=== PATIENT | female | born 1985 | race Two or more races ===

== ENCOUNTER 2017-06-20 01:49 | Inpatient (IN) | payer OTHER ==
[2017-06-20] VITALS (41 sets, daily range): BP systolic 88–220; BP diastolic 43–175; PULSE 78–206; RESP 16–18; TEMP 97.7–98.7
[~2017-06-20] VITALS: Ht 170.2 cm; Wt 81.0 kg
[2017-06-20] MEDS ORDERED: MAGNESIUM SULFATE 4 GM PREMIX 100 ML IV ONE ×2 (03:00→03:30)
[2017-06-20] MEDS ORDERED: MAGNESIUM SULFATE 40 GM PREMIX 1,000 ML IV SCH (03:22)
[2017-06-20] MEDS ORDERED: oxyCODONE/ACETAMINOPHEN 5 MG/325 MG TAB PO PRN (03:30)
[2017-06-20] MEDS ORDERED: ONDANSETRON ODT 4 MG TAB PO PRN (03:30)
[2017-06-20] MEDS ORDERED: ONDANSETRON HCL 4 MG/2 ML VIAL IV PUSH PRN (03:30)
[2017-06-20] MEDS ORDERED: ENOXAPARIN SODIUM 40 MG/0.4 ML SYRINGE SQ SCH (03:30)
[2017-06-20] MEDS ORDERED: SODIUM CHLORIDE 0.9% FLUSH 10 ML FLUSH IV FLUSH PRN (03:30)
[2017-06-20] MEDS ORDERED: ACETAMINOPHEN 325 MG TAB PO PRN (03:30)
[2017-06-20] MEDS ORDERED: DOCUSATE SODIUM 100 MG CAP PO PRN (03:30)
[2017-06-20] MEDS ORDERED: CALCIUM GLUCONATE 10% 1 GM/10 ML VIAL IV PUSH PRN (03:30)
[2017-06-20] MEDS ORDERED: ZOLPIDEM TARTRATE 5 MG TAB PO PRN (03:30)
--- NOTE | 2017-06-20 03:44 | HHI.HP ---
HPI Chief Complaint Water broke Date Seen: Jun 20, 2017 Time Seen: 03:00 Travel History International Travel<30 Days: Yes Contact w/Intl Traveler<30Days: Yes Known Affected Area: No History of Present Illness HPI Patient is 32-year-old white female at 30 weeks who is vacationing here in the [facility] from [place] and is now had premature rupture the membranes grossly, no bleeding, no pain or contractions. 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 and is on subcutaneous heparin with this and with her last well Obstetric History Obstetric History 1/delivery term exactly 1 year ago Social History Alcohol Use: No Tobacco Use: No Substance Abuse: No Allergies-Medications (Allergen,Severity, Reaction): Uncoded Allergies: no known allergy (Allergy, Unknown, 06/20/17) Review of Systems General / Constitutional: No: Fever, Weight Gain, Chills, Other Eyes: No: Diploplia, Blurred Vision, Visual changes, Pain, Photophobia HENT: No: Headaches, Vertigo, Lightheadedness Cardiovascular: No: Irregular Rhythm, Chest Pain or Discomfort, Palpitations, Tachycardia, Syncope, Varicosities, Edema, Cyanosis Respiratory: No: Cough, Short of Breath, Other Gastrointestinal: No: Nausea, Vomiting, Diarrhea Genitourinary: No: Decreased Urinary Output, Oliguria Musculoskeletal: No: Limited ROM, Weakness, Cramping, Edema, Pain Skin: No Rash, No Itching, No Dryness, No Lumps, No Change in Pigmentation, No Change in Nails, No Alopecia, No Lesions Neurologic: No: Weakness, Dizziness, Syncope, Focal Abnormalities, Coordination Problem, Headache, Slurred Speech, Seizures Psychiatric: No: Depression, Suicidal Ideations, Homicidal Ideation Endocrine: No: Heat Intolerance, Cold Intolerance, Polydipsia, Polyuria, Other Physical Exam Narrative GENERAL: Well-nourished, well-developed patient. SKIN: Warm and dry. HEAD: Normocephalic and atraumatic. EYES: No scleral icterus. No injection or drainage. ENT: No nasal drainage noted. Mucous membranes pink. Airway patent. NECK: Supple, trachea midline. No JVD. CARDIOVASCULAR: Regular rate and rhythm without murmurs, gallops, or rubs. RESPIRATORY: Breath sounds equal bilaterally. No accessory muscle use. BREASTS: Bilateral exam showed no masses , no retractions, no nipple discharge. ABDOMEN/GI: Abdomen soft, non-tender, bowel sounds present, no rebound, no guarding Gravid to [-30] weeks size Fundal Height: [30-] GENITOURINARY: External Genitalia: intact and normal in appearance spec exam -- large gush of fluid cx appears closed and thick no digital exam done Presentation: [breech-] Membranes: r ruptured]+ amnisure Uterine Contractions: [none-] FHT's: Category: [1-] Baseline: [-133] Reactive: [-yes] Variability: [mod-] Decels: [0-] EXTREMITIES: No cyanosis or edema. BACK: Nontender without obvious deformity. No CVA tenderness. NEUROLOGICAL: Awake and alert. Motor and sensory grossly within normal limits. Five out of 5 muscle strength in all muscle groups. Normal speech. Caprini VTE Risk Assessment Caprini VTE Risk Assessment: Mod/High Risk (score >= 2) Caprini Risk Assessment Model Point Value = 1 Point Value = 2 Point Value = 3 Point Value = 5 Age 41-60 Minor surgery BMI > 25 kg/m2 Swollen legs Varicose veins or History of unexplained or recurrent spontaneous Oral contraceptives or hormone replacement Sepsis (< 1 month) Serious lung disease, including pneumonia (< 1 month) Abnormal pulmonary function Acute myocardial infarction Congestive heart failure (< 1 month) History of inflammatory bowel disease Medical patient at bed rest Age 61-74 Arthroscopic surgery Major open surgery (> 45 min) Laparoscopic surgery (> 45 min) Malignancy Confined to bed (> 72 hours) Immobilizing plaster cast Central venous access Age >= 75 History of VTE Family history of VTE Factor V Leiden Prothrombin [id number] Lupus anticoagulant Anticardiolipin antibodies Elevated serum homocysteine Heparin-induced thrombocytopenia Other congenital or acquired thrombophilia Stroke (< 1 month) Elective arthroplasty Hip, pelvis, or leg fracture Acute spinal cord injury (< 1 month) Prophylaxis Regimen Total Risk Factor Score Risk Level Prophylaxis Regimen 0-1 Low Early ambulation 2 Moderate Order ONE of the following: *Sequential Compression Device (SCD) *Heparin 5000 units SQ BID 3-4 Higher Order ONE of the following medications: *Heparin 5000 units SQ TID *Enoxaparin/Lovenox 40 mg SQ daily (WT < 150 kg, CrCl > 30 mL/min) *Enoxaparin/Lovenox 30 mg SQ daily (WT < 150 kg, CrCl > 10-29 mL/min) *Enoxaparin/Lovenox 30 mg SQ BID (WT < 150 kg, CrCl > 30 mL/min) AND/OR *Sequential Compression Device (SCD) 5 or more Highest Order ONE of the following medications: *Heparin 5000 units SQ TID (Preferred with Epidurals) *Enoxaparin/Lovenox 40 mg SQ daily (WT < 150 kg, CrCl > 30 mL/min) *Enoxaparin/Lovenox 30 mg SQ daily (WT < 150 kg, CrCl > 10-29 mL/min) *Enoxaparin/Lovenox 30 mg SQ BID (WT < 150 kg, CrCl > 30 mL/min) AND *Sequential Compression Device (SCD) Data Data Orders Orders Magnesium Sulfate 4 Gm Premix (Magnesium (06/20/17 03:00) Ob (2e) Additional Admit Info (06/20/17 02:49) Admit To Inpatient (06/20/17 ) Vital Signs (Adult) Q4H (06/20/17 03:22) Activity Bed Rest (06/20/17 03:22) Heart (06/20/17 03:22) Diet Regular Basic (06/20/17 Breakfast) Lactated Ringer's 1000 Ml Inj (Lr 1000 M (06/20/17 03:22) Sodium Chloride 0.9% Flush (Ns Flush) (06/20/17 03:30) Sodium Chloride 0.9% Flush (Ns Flush) (06/20/17 09:00) Betamethasone Inj (Celestone Soluspan In (06/20/17 03:30) Magnesium Sulfate 40 Gm Premix (Magnesiu (06/20/17 03:22) Calcium Gluconate Inj (Calcium Gluconate (06/20/17 03:30) Acetaminophen (Tylenol) (06/20/17 03:30) Ondansetron Inj (Zofran Inj) (06/20/17 03:30) Ondansetron Odt (Zofran Odt) (06/20/17 03:30) Docusate Sodium (Colace) (06/20/17 03:30) Yzgrguvl-Pbc-[id number]-Iron Prenat (Stuartna (06/20/17 09:00) Zolpidem (Ambien) (06/20/17 03:30) Complete Blood Count With Diff (06/20/17 03:22) Group B Beta Strep Scrn (Gbs) (06/20/17 03:22) Gc And Chlamydia Pcr (06/20/17 03:22) Drug Screen, Random Urine (06/20/17 03:22) Urinalysis - C+S If Indicated (06/20/17 03:22) Magnesium Sulfate 4 Gm Premix (Magnesium (06/20/17 03:30) Specimen To Be Collected PRN (06/20/17 03:22) Specimen To Be Collected PRN (06/20/17 03:22) Ampicillin Inj (Ampicillin Inj) (06/20/17 04:00) Erythromycin Ees (Ees) (06/20/17 06:00) Enoxaparin Inj (Lovenox Inj) (06/20/17 03:30) Comprehensive Metabolic Panel (06/20/17 03:25) Rubella Immune Status (06/20/17 03:26) Hepatitis Profile (06/20/17 03:26) Rapid Plasma Regin (Rpr) W Ttr (06/20/17 03:26) Type And Screen (06/20/17 03:26) Hiv Antibody Screen (06/20/17 03:26) Oxycodone-Acetamin 5-325 Mg (Percocet (06/20/17 03:30) Prothrombin Time / Inr (Pt) (06/20/17 03:29) Act Partial Throm Time (Ptt) (06/20/17 03:29) Ob Poc Ultrasound (06/20/17 ) Labs Bedside ultrasound was done by myself shows a single intrauterine in incomplete breech presentation with marked oligohydramnios, estimated weight of 1510 g or 3 lbs. 5 oz., growth parameters consistent with 30 weeks 4 days size, normal anatomy scan performed, anterior grade 0 placenta noted Assessment/Plan Assessment and Plan Patient is 32-year-old white female at 30 weeks with PPROM, breech presentation Plan-admit to antepartum service, IV &po antibiotics, IM steroids, IV magnesium sulfate for neuro protection. I explained to the patient that with ruptured membranes she'll need stay in the hospital and 1 of 2 things will occur either she will go into labor or she'll develop an infection requiring us to deliver., that delivery would be by because of breech presentation Kemal Hernandez II, MD Jun 20, 2017 03:44
[2017-06-20] MEDS: AMPICILLIN INJ 2,000 MG in SODIUM CHLORIDE 0.9% INJ 100 ML IV SCH ×4 (04:00→22:00)
[2017-06-20 04:33] LABS: AUTOMATED NEUTROPHIL # 4.5 TH/MM3 (1.8-7.7); BASOPHIL % 0.4 % (0.0-2.0); EOSINOPHIL % 0.7 % (0.0-4.0); HEMATOCRIT 34.6 % (35.0-46.0); LYMPH % 23.2 % (9.0-44.0); LYMPHOCYTE # 1.6 TH/MM3 (1.0-4.8); MEAN CELL VOLUME 90.5 FL (80.0-100.0); MEAN CORPUSCULAR HEMOGLOBIN 31.4 PG (27.0-34.0); MEAN CORPUSCULAR HGB CONC 34.7 % (32.0-36.0); MEAN PLATELET VOLUME 8.3 FL (7.0-11.0); MONO % 8.9 % (0.0-8.0); MONOCYTE # 0.6 TH/MM3 (0-0.9); NEUT % 66.8 % (16.0-70.0); PLATELET COUNT 182 TH/MM3 (150-450); RED BLOOD COUNT 3.83 MIL/MM3 (4.00-5.30); RED CELL DISTRIBUTION WIDTH 13.1 % (11.6-17.2); WHITE BLOOD COUNT 6.8 TH/MM3 (4.0-11.0)
[2017-06-20] MEDS: LACTATED RINGER'S 1000 ML INJ 1,000 ML IV SCH ×3 (04:37→20:00)
[2017-06-20] MEDS: BETAMETHASONE SOD PHOS/ACETATE SUSP 30 MG/5 ML VIAL IM SCH (04:37)
[2017-06-20 05:05] LABS: BACTERIA, URINE RARE /hpf; BILIRUBIN, URINE NEG (NEG); BLOOD, URINE TRACE (NEG); GLUCOSE,URINE NEG (NEG); KETONE, URINE NEG (NEG); NITRITE,URINE NEG (NEG); SQUAMOUS EPITHELIAL CELL URINE 2 /hpf (0-5); URINE COLOR LIGHT-YELLOW (YELLW/STRAW); URINE LEUKOCYTE ESTERASE MOD (NEG)
[2017-06-20 05:11] LABS: ALBUMIN 2.5 GM/DL (3.4-5.0); AST (GOT) 19 U/L (15-37); BICARBONATE 25.6 MEQ/L (21.0-32.0); BLOOD UREA NITROGEN 5 MG/DL (7-18); CALCIUM 8.1 MG/DL (8.5-10.1); CHLORIDE 106 MEQ/L (98-107); CREATININE 0.61 MG/DL (0.50-1.00); GLOMERULAR FILTRATION RATE 114 ML/MIN (>89); GLUCOSE,RANDOM 81 MG/DL (74-106); SODIUM (NA) 140 MEQ/L (136-145)
[2017-06-20 05:15] LABS: ALKALINE PHOSPHATASE 57 U/L (45-117); ALT (GPT) 31 U/L (10-53); TOTAL BILIRUBIN ADULT 0.2 MG/DL (0.2-1.0); TOTAL PROTEIN 6.5 GM/DL (6.4-8.2)
[2017-06-20] MEDS: ERYTHROMYCIN ETHYLSUCCINATE 400 MG TAB PO SCH ×4 (06:00→23:56)
--- NOTE | 2017-06-20 08:35 | PD.OB.ANTE ---
Subjective Interval History PPROM at 30 weeks doing well at this time no pain no abdominal tenderness, baby active Antepartum ROS: Reports: Loss of fluid, movement normal Objective Vital Signs Vital Signs Date Time Temp Pulse Resp B/P (MAP) Pulse Ox O2 Delivery O2 Flow Rate FiO2 06/20/17 07:41 18 06/20/17 07:41 97.9 06/20/17 07:00 116 103/68 (80) 06/20/17 06:43 18 06/20/17 06:00 18 06/20/17 06:00 81 101/53 (69) 06/20/17 05:30 82 88/43 (58) 06/20/17 05:15 83 107/50 (69) 06/20/17 05:00 18 06/20/17 04:50 89 106/69 (81) 06/20/17 04:45 78 110/60 (77) 06/20/17 04:30 206 105/70 (82) 06/20/17 04:30 97.9 18 06/20/17 04:23 81 113/67 (82) 06/20/17 04:21 101 220/175 (190) Lab & Micro Results Test 06/20/17 02:00 06/20/17 03:59 06/20/17 04:15 Urine Color LIGHT-YELLOW Urine Turbidity CLEAR Urine pH 7.0 Urine Specific Curtis 1.005 Urine Protein NEG mg/dL Urine Glucose (UA) NEG mg/dL Urine Ketones NEG mg/dL Urine Occult Blood TRACE Urine Nitrite NEG Urine Bilirubin NEG Urine Urobilinogen LESS THAN 2.0 MG/DL Urine Leukocyte Esterase MOD Urine RBC 1 /hpf Urine WBC 4 /hpf Urine Squamous Epithelial Cells 2 /hpf Urine Bacteria RARE /hpf Microscopic Urinalysis Comment CULT NOT INDICATED Urine Opiates Screen NEG Urine Barbiturates Screen NEG Urine Amphetamines Screen NEG Urine Benzodiazepines Screen NEG Urine Cocaine Screen NEG Urine Cannabinoids Screen NEG Chlamydia trachomatis DNA (PCR) NOT DETECTED Neisseria gonorrhoeae DNA (PCR) NOT DETECTED White Blood Count 6.8 TH/MM3 Red Blood Count 3.83 MIL/MM3 Hemoglobin 12.0 GM/DL Hematocrit 34.6 % Mean Corpuscular Volume 90.5 FL Mean Corpuscular Hemoglobin 31.4 PG Mean Corpuscular Hemoglobin Concent 34.7 % Red Cell Distribution Width 13.1 % Platelet Count 182 TH/MM3 Mean Platelet Volume 8.3 FL Neutrophils (%) (Auto) 66.8 % Lymphocytes (%) (Auto) 23.2 % Monocytes (%) (Auto) 8.9 % Eosinophils (%) (Auto) 0.7 % Basophils (%) (Auto) 0.4 % Neutrophils # (Auto) 4.5 TH/MM3 Lymphocytes # (Auto) 1.6 TH/MM3 Monocytes # (Auto) 0.6 TH/MM3 Eosinophils # (Auto) 0.0 TH/MM3 Basophils # (Auto) 0.0 TH/MM3 CBC Comment DIFF FINAL Differential Comment Prothrombin Time 10.0 SEC Prothromb Time International Ratio 1.0 RATIO Activated Partial Thromboplast Time 24.0 SEC HIV (1&2) Antibody NEGATIVE Blood Urea Nitrogen 5 MG/DL Creatinine 0.61 MG/DL Random Glucose 81 MG/DL Total Protein 6.5 GM/DL Albumin 2.5 GM/DL Calcium Level 8.1 MG/DL Alkaline Phosphatase 57 U/L Aspartate Amino Transf (AST/SGOT) 19 U/L Alanine Aminotransferase (ALT/SGPT) 31 U/L Total Bilirubin 0.2 MG/DL Sodium Level 140 MEQ/L Potassium Level 3.6 MEQ/L Chloride Level 106 MEQ/L Carbon Dioxide Level 25.6 MEQ/L Anion Gap 8 MEQ/L Estimat Glomerular Filtration Rate 114 ML/MIN Rubella Immunity Screen IMMUNE Rubella Antibody, Quantitative GREATER THAN 500.0 IU/mL Physical Exam GENERAL: Well-nourished, well-developed patient. CARDIOVASCULAR: Regular rate and rhythm without murmurs, gallops, or rubs. RESPIRATORY: Breath sounds equal bilaterally. No accessory muscle use. ABDOMEN/GI: Abdomen soft, non-tender. Fundus: [30 cm-] GENITOURINARY: External Genitalia: intact and normal in appearance Cervix: [-] Dilatation: [closed-] Effacement: [-] Station: [-] Presentation: [-] Membranes: [-PPROM] Uterine Contractions: [-occasional] FHT's: Category: [1-] Baseline: [133-] Reactive: [yes-] Variability: [mod-] Decels: none[-] EXTREMITIES: No cyanosis or edema, non-tender, without signs of DVT. Assessment and Plan Assessment and Plan Patient is 32-year-old white female at 30 weeks with PPROM, breech presentation Plan-admit to antepartum service, IV &po antibiotics, IM steroids, IV magnesium sulfate for neuro protection. I explained to the patient that with ruptured membranes she'll need stay in the hospital and 1 of 2 things will occur either she will go into labor or she'll develop an infection requiring us to deliver., that delivery would be by because of breech presentation Kemal Hernandez II, MD Jun 20, 2017 08:35
[2017-06-20] MEDS: SODIUM CHLORIDE 0.9% FLUSH 10 ML FLUSH IV FLUSH SCH ×2 (08:50→21:00)
[2017-06-20] MEDS: MULTIVIT/MIN/PREN/FOL AC/IRON PRENATAL TAB PO SCH (09:01)
--- NOTE | 2017-06-20 19:37 | HHI.PR ---
Addendum to Inpatient Note Addendum Reason: Additional Documentation Additional Information Consult Maternal Hx: 32 y/o, , female at 30+ weeks gestation with diagnosis of PPROM but otherwise uncomplicated . Mother admitted to [facility] & [facility] on 06/20/17, secondary to PPROM. Most recent Ultrasound on 06/20/17 confirms intrauterine , consistent with 30 weeks gestation, breech presentation, and an estimated weight of 1510grams. Maternal risk factors/complications: Mom has a h/o of a DVT from control pills and takes SQ heparin daily Maternal Labs: Blood type A+, Rubella immune, RPR pending, Hepatitis B pending, HIV negative, GBS unknown. Maternal Medications: Betamethasone (1st dose given 06/20/17 at 0430) Magnesium Ampicillin Lovenox Social: Marital status: single, boyfriend present and supportive. Mom, her boyfriend, and child were vacationing in the [facility] from [facility] when her membranes ruptured. Family Hx: Mother reports no genetic or inherited conditions. Reports other children are well. Substance Abuse: Denies Admission UDS was negative Discussion: RULES EXAMINER met with mother and father (boyfriend) for consult. Their toddler was present as well. Prematurity and delivery was discussed. Premature lung disease was discussed along with potential need for respiratory support to include CPAP and/or intubation. The possible need for surfactant was explained as well as the benefits of the steroid injections that mom is receiving. The need for IV placement and IVF were discussed as well as the importance of breast milk for feeding tolerance. Mom has agreed to provide breast milk but shared that she had difficulty with her first child. Mom understands that feeds will be gradually advanced over the first few days of life as tolerated and that IVF will be weaned accordingly. It was explained that a head ultrasound would be completed at a week of life due to prematurity and risk of IVH. Mom expressed concern that she was on anticoagulants. It was explained to mom that older babies have a lower risk than younger babies and that precautions are taken to minimize risk of bleeding. Mom was informed that the baby would likely need at least a short course of antibiotics due to increased risk for infection with PPROM. Mom expressed concern about potential side effects of antibiotics, in particular disrupting normal alem. RULES EXAMINER assured her that antibiotics are used conservatively and the potential complications are evaluated against the risk for infection when determined need for usage as well as length of treatment. Increased risk for jaundice and treatment with phototherapy was discussed. Mom was informed that babies born at 30 weeks or later have excellent survival rates and generally do well. NICU admission was reviewed. Mom was told that visitation is open and that parental involvement is strongly encouraged. Mom was also made aware of support services such as as well as case management. RULES EXAMINER encouraged mom to speak with case management after the holiday weekend given her unusual social circumstances. Mom asked appropriate questions throughout the conversation and expressed understanding. Mom is appropriately concerned about the health and well being of her baby. Dad left mid way through the conversation as the toddler was fussing. Mom informed RULES EXAMINER that dad does not speak Georgian. Mom was offered translation services for dad and/or herself. She stated that she feels fairly confident in understanding Georgian but that translation would be helpful for dad. RULES EXAMINER offered to come back to speak with dad via automotive starter repairer or to have a member of the neonatology team come back in the future to answer any other questions that may arise. Mom was very appreciative of the consult. Greater than 50% of the consultation time was spent with the patient. Mayda Brizuela Jun 20, 2017 19:37
[2017-06-20] MEDS: ENOXAPARIN SODIUM 40 MG/0.4 ML SYRINGE SQ SCH (21:04)
--- NOTE | 2017-06-20 23:29 | HHI.PR ---
Subjective Remarks OBHG The patient is a 32-year-old 1001 with IUP at 30.1 presented last night with PPROM and breech. She is visiting from [place]. She was placed on magnesium for neuro protection and received her first dose of betamethasone. Of note she is on Lovenox for history of DVT due to OCPs 18 years old. I've been instructed on the patient several times and of reviewed her heart rate tracing on numerous occasions. She has had occasional and irregular contractions. She had a reassuring heart rate tracing throughout the day with perhaps to mild variables noted earlier in the evening. Currently the heart rate is with baseline in the 120s, moderate long-term variability, good accelerations, no decelerations are noted with a category 1 heart rate tracing. At this time she is resting comfortably and appears to be asleep. She denies not appear to be having regular painful contractions at this time. We'll monitor closely, continue magnesium sulfate for now, and antibiotics to prolong latency. She is aware she'll require a delivery when it is time to proceed with delivery. Objective Vital Signs Date Time Temp Pulse Resp B/P (MAP) Pulse Ox O2 Delivery O2 Flow Rate FiO2 06/20/17 21:45 18 06/20/17 21:00 18 06/20/17 19:43 98.7 18 06/20/17 18:46 16 06/20/17 15:42 18 06/20/17 15:42 100 113/63 (80) 06/20/17 15:41 98.4 06/20/17 15:40 96 06/20/17 15:35 95 06/20/17 15:30 96 06/20/17 15:25 96 06/20/17 15:20 100 06/20/17 15:15 97 06/20/17 15:10 90 06/20/17 15:05 97 06/20/17 15:00 92 06/20/17 14:55 94 06/20/17 14:50 94 06/20/17 14:45 104 06/20/17 14:40 98.0 06/20/17 12:05 100 119/61 (80) 06/20/17 12:00 103 06/20/17 12:00 98.0 18 06/20/17 11:55 108 06/20/17 11:50 109 06/20/17 10:00 97.7 06/20/17 09:00 93 134/81 (98) 06/20/17 08:00 96 114/67 (83) 06/20/17 07:41 18 06/20/17 07:41 97.9 06/20/17 07:00 116 103/68 (80) 06/20/17 06:43 18 06/20/17 06:00 18 06/20/17 06:00 81 101/53 (69) 06/20/17 05:30 82 88/43 (58) 06/20/17 05:15 83 107/50 (69) 06/20/17 05:00 18 06/20/17 04:50 89 106/69 (81) 06/20/17 04:45 78 110/60 (77) 06/20/17 04:30 206 105/70 (82) 06/20/17 04:30 97.9 18 06/20/17 04:23 81 113/67 (82) 06/20/17 04:21 101 220/175 (190) Result Diagram: 06/20/17 0359 06/20/17 0415 Julia Calixto MD Jun 20, 2017 23:28
[2017-06-21] VITALS (48 sets, daily range): BP systolic 94–115; BP diastolic 42–61; PULSE 79–97; RESP 18; TEMP 97.7–98.4
[2017-06-21] MEDS: LACTATED RINGER'S 1000 ML INJ 1,000 ML IV SCH ×3 (03:22→19:22)
[2017-06-21] MEDS: BETAMETHASONE SOD PHOS/ACETATE SUSP 30 MG/5 ML VIAL IM SCH (03:30)
[2017-06-21] MEDS: AMPICILLIN INJ 2,000 MG in SODIUM CHLORIDE 0.9% INJ 100 ML IV SCH ×4 (04:00→21:40)
[2017-06-21] MEDS: SODIUM CHLORIDE 0.9% FLUSH 10 ML FLUSH IV FLUSH SCH ×2 (09:00→21:40)
--- NOTE | 2017-06-21 09:53 | HHI.PR ---
Subjective Remarks OBHG The patient is a 32-year-old 1001 with IUP at 30.1 presented on 06/20/17 with PPROM and breech. She is visiting from [place]. She was placed on magnesium for neuro protection and received her first dose of betamethasone. Of note she is on Lovenox for history of DVT due to OCPs 18 years old. IShcata had occasional and irregular contractions last night only reports 1 contraction this morning. She had overall reassuring heart rate tracing throughout the night with occasional, nonrepetitive, isolated variables. Currently the heart rate is with baseline in the 120s, moderate long-term variability, good accelerations, no decelerations at this time are noted with a category 1 heart rate tracing. At this time she is resting comfortably. She denies not appear to be having regular painful contractions at this time. We'll monitor closely, continue magnesium sulfate for now, and antibiotics to prolong latency. She is aware she'll require a delivery when it is time to proceed with delivery and aware that if decelerations become repetitive or she enters labor she will require a delivery. Objective Vital Signs Date Time Temp Pulse Resp B/P (MAP) Pulse Ox O2 Delivery O2 Flow Rate FiO2 06/21/17 08:55 83 06/21/17 08:50 87 06/21/17 08:45 85 06/21/17 08:40 91 06/21/17 08:35 94 06/21/17 08:30 91 06/21/17 08:25 86 06/21/17 08:20 84 06/21/17 08:15 89 06/21/17 08:14 97.8 18 06/21/17 08:10 84 06/21/17 08:08 94 96/42 (60) 06/21/17 05:54 18 06/21/17 04:58 98.4 18 06/21/17 04:51 85 101/56 (71) 06/21/17 03:53 18 06/21/17 03:00 18 06/21/17 01:52 18 06/21/17 00:48 18 06/21/17 00:00 98.1 06/20/17 23:54 92 114/52 (72) 06/20/17 23:38 18 06/20/17 23:00 18 06/20/17 21:45 18 06/20/17 21:00 18 06/20/17 19:43 98.7 18 06/20/17 18:46 16 06/20/17 15:42 18 06/20/17 15:42 100 113/63 (80) 06/20/17 15:41 98.4 06/20/17 15:40 96 06/20/17 15:35 95 06/20/17 15:30 96 06/20/17 15:25 96 06/20/17 15:20 100 06/20/17 15:15 97 06/20/17 15:10 90 06/20/17 15:05 97 06/20/17 15:00 92 06/20/17 14:55 94 06/20/17 14:50 94 06/20/17 14:45 104 06/20/17 14:40 98.0 06/20/17 12:05 100 119/61 (80) 06/20/17 12:00 103 06/20/17 12:00 98.0 18 06/20/17 11:55 108 06/20/17 11:50 109 06/20/17 10:00 97.7 I/O 06/20/17 06/20/17 06/20/17 06/21/17 06/21/17 06/21/17 07:00 15:00 23:00 07:00 15:00 23:00 Intake Total 1045 ml Balance 1045 ml Intake IV Total 1045 ml Result Diagram: 06/20/17 0359 06/20/17 0415 Julia Calixto MD Jun 21, 2017 09:53
--- NOTE | 2017-06-21 09:56 | HHI.PR ---
Subjective Remarks [facility] NST report Indications: IUP at 30.1, breech, PPROM heart tone baseline in the 120s with moderate long-term variability, good accelerations, no decelerations noted at this time with the last being at 9:04 a.m. and 8:04 AM that resolved spontaneously with return to baseline, accelerations, and moderate long-term variability. At this time she has a category 1 tracing and a reactive NST. Follow-up: Continuous monitoring Final diagnosis: IUP at 30.1, breech, PPROM Objective Vital Signs Date Time Temp Pulse Resp B/P (MAP) Pulse Ox O2 Delivery O2 Flow Rate FiO2 06/21/17 08:55 83 06/21/17 08:50 87 06/21/17 08:45 85 06/21/17 08:40 91 06/21/17 08:35 94 06/21/17 08:30 91 06/21/17 08:25 86 06/21/17 08:20 84 06/21/17 08:15 89 06/21/17 08:14 97.8 18 06/21/17 08:10 84 06/21/17 08:08 94 96/42 (60) 06/21/17 05:54 18 06/21/17 04:58 98.4 18 06/21/17 04:51 85 101/56 (71) 06/21/17 03:53 18 06/21/17 03:00 18 06/21/17 01:52 18 06/21/17 00:48 18 06/21/17 00:00 98.1 06/20/17 23:54 92 114/52 (72) 06/20/17 23:38 18 06/20/17 23:00 18 06/20/17 21:45 18 06/20/17 21:00 18 06/20/17 19:43 98.7 18 06/20/17 18:46 16 06/20/17 15:42 18 06/20/17 15:42 100 113/63 (80) 06/20/17 15:41 98.4 06/20/17 15:40 96 06/20/17 15:35 95 06/20/17 15:30 96 06/20/17 15:25 96 06/20/17 15:20 100 06/20/17 15:15 97 06/20/17 15:10 90 06/20/17 15:05 97 06/20/17 15:00 92 06/20/17 14:55 94 06/20/17 14:50 94 06/20/17 14:45 104 06/20/17 14:40 98.0 06/20/17 12:05 100 119/61 (80) 06/20/17 12:00 103 06/20/17 12:00 98.0 18 06/20/17 11:55 108 06/20/17 11:50 109 06/20/17 10:00 97.7 I/O 06/20/17 06/20/17 06/20/17 06/21/17 06/21/17 06/21/17 07:00 15:00 23:00 07:00 15:00 23:00 Intake Total 1045 ml Balance 1045 ml Intake IV Total 1045 ml Result Diagram: 06/20/17 0359 06/20/17 0415 Julia Calixto MD Jun 21, 2017 09:56
[2017-06-21] MEDS: MULTIVIT/MIN/PREN/FOL AC/IRON PRENATAL TAB PO SCH (10:00)
[2017-06-21 11:13] LABS: AUTOMATED NEUTROPHIL # 11.6 TH/MM3 (1.8-7.7); HEMATOCRIT 33.5 % (35.0-46.0); HEMOGLOBIN 11.3 GM/DL (11.6-15.3); LYMPH % 5.8 % (9.0-44.0); LYMPHOCYTE # 0.7 TH/MM3 (1.0-4.8); MEAN CELL VOLUME 91.9 FL (80.0-100.0); MEAN CORPUSCULAR HEMOGLOBIN 31.2 PG (27.0-34.0); MEAN CORPUSCULAR HGB CONC 33.9 % (32.0-36.0); MEAN PLATELET VOLUME 8.3 FL (7.0-11.0); MONO % 2.3 % (0.0-8.0); MONOCYTE # 0.3 TH/MM3 (0-0.9); NEUT % 91.9 % (16.0-70.0); PLATELET COUNT 189 TH/MM3 (150-450); RED BLOOD COUNT 3.64 MIL/MM3 (4.00-5.30); WHITE BLOOD COUNT 12.7 TH/MM3 (4.0-11.0)
[2017-06-21] MEDS: ERYTHROMYCIN ETHYLSUCCINATE 400 MG TAB PO SCH ×2 (12:16→17:28)
--- NOTE | 2017-06-21 17:57 | HHI.PR ---
BARTENDER Note Note Patient without contractions, good movement, and has received both doses of steroids. Will discontinue magnesium sulfate and allow limited activity. Patient has a history of thromboembolism in the past and is on Lovenox presently and antibiotics. Gerry has counseled patient yesterday regarding NICU care. Mikaela Gallardo MD Jun 21, 2017 17:57
[2017-06-21] MEDS: ENOXAPARIN SODIUM 40 MG/0.4 ML SYRINGE SQ SCH (21:39)
[2017-06-22] VITALS (11 sets, daily range): BP systolic 98–118; BP diastolic 62–79; PULSE 54–79; RESP 16–22; TEMP 96.5–98; O2SAT 95–98
[2017-06-22] MEDS: ERYTHROMYCIN ETHYLSUCCINATE 400 MG TAB PO SCH ×2 (00:21→06:00)
[2017-06-22] MEDS ORDERED: HYDROmorphone HCL PF 2 MG/ML VIAL ONE (00:44)
[2017-06-22] MEDS ORDERED: fentaNYL CITRATE 250 MCG/5 ML AMP ONE (00:44)
--- NOTE | 2017-06-22 01:27 | HHI.PR ---
COOK'S ASSISTANT Note Note Patient had called out to nurse to use the restroom at 0020. After she voided she complained that something had prolapsed through her vagina. Cord prolapse was quickly diagnosed and manual elevation was placed to the breech while preparing for an emergency . Mikaela Gallardo MD Jun 22, 2017 01:27
--- NOTE | 2017-06-22 01:32 | PD.OB.DELI ---
Procedure Note Section Procedure Pre Op Diagnosis: (1) 30 weeks gestation of (2) Premature rupture of membranes (PROM), onset of labor after 24 hours, antepartum, (3) Breech presentation (4) Prolapse of cord complicating labor and delivery, antepartum Post Op Diagnosis: Performed by Mikaela Gallardo Procedure: Primary Low Transverse Sec Indication for delivery: malposition, Other (cord prolapse) Previous condition: Other (PPROM) Informed consent obtained: For anesthesia, For procedure Confirmed correct: Patient, Procedure Anesthesia: Other (GETA) Medication prior to procedure: As documented in eMAR Monitoring during procedure: Blood pressure monitoring, cardiac monitor technician Urinary catheter: Inserted using sterile technique Sterile preparation: With 10% povidone iodine (Betadine) Position: Supine Operative Features Skin Incision: Pfannenstiel Uterine Incision: Low transverse w/knife / blunt ext Membranes Ruptured: Previously Presentation: Occiput anterior, Vertex Delivery date: Jun 22, 2017 Delivery time: 00:37 Infant: Male One Minute : 3 Five Minute : 8 Weight: 1580gm Status of : Viable Placenta delivered: Intact Medications: Oxytocin Estimated blood loss: 600cc Procedure tolerated: Well Maternal Condition: Stable Condition: Stable Mikaela Gallardo MD Jun 22, 2017 01:32
[2017-06-22] MEDS ORDERED: HYDROmorphone HCL PCA 6 MG/30 ML IV ONE (01:33)
--- NOTE | 2017-06-22 01:40 | RADRPT ---
EXAM DATE/TIME: 06/22/2017 01:05 [place] COMPARISON: No previous studies available for comparison. INDICATIONS : Post emergency , check for foreign body. MEDICAL HISTORY : None. SURGICAL HISTORY : None. ENCOUNTER: Initial ACUITY: 1 day PAIN SCORE: 0/10 LOCATION: Bilateral abdomen FINDINGS: The bowel gas is nonspecific. There are no signs of obstruction or free air for technique. No defini te calcified stones are identified for technique. There is no evidence for a radiopaque foreign body for technique and there is no evidence of a surgical instrument. CONCLUSION: Nonspecific abdomen. Dmitri Johnson MD on June 22, 2017 at 1:38 Board Certified Radiologist. This report was verified electronically.
[2017-06-22] MEDS ORDERED: oxyCODONE/ACETAMINOPHEN 5 MG/325 MG TAB PO PRN ×2 (01:45)
[2017-06-22] MEDS ORDERED: SODIUM CHLORIDE 0.9% FLUSH 10 ML FLUSH IV FLUSH PRN (01:45)
[2017-06-22] MEDS ORDERED: NALOXONE HCL 0.4 MG/ML AMP IV PUSH PRN (01:45)
[2017-06-22] MEDS ORDERED: HYDROmorphone HCL PCA 6 MG/30 ML IV SCH (01:45)
[2017-06-22] MEDS ORDERED: ONDANSETRON HCL 4 MG/2 ML VIAL IV PUSH PRN (01:45)
[2017-06-22] MEDS ORDERED: OXYTOCIN 30 UNITS-500ML PREMIX 500 ML IV ONE (01:45)
[2017-06-22] MEDS ORDERED: SIMETHICONE 80 MG CHEWABLE TAB PO PRN (01:45)
[2017-06-22] MEDS ORDERED: KETOROLAC TROMETHAMINE 60 MG/2 ML (IM) VIAL IM PRN (01:45)
[2017-06-22] MEDS ORDERED: diphenhydrAMINE HCL 25 MG CAP PO PRN (01:45)
[2017-06-22] MEDS: LACTATED RINGER'S 1000 ML INJ 1,000 ML IV SCH ×5 (02:35→19:22)
[2017-06-22] MEDS ORDERED: OXYTOCIN 30 UNITS-500ML PREMIX 0 ML ONE (03:15)
[2017-06-22] MEDS: AMPICILLIN INJ 2,000 MG in SODIUM CHLORIDE 0.9% INJ 100 ML IV SCH (04:00)
[2017-06-22] MEDS ORDERED: PCA - TOTAL MG DILAUDID DELIVERED PER SHIFT OTHER SCH (06:00)
--- NOTE | 2017-06-22 06:31 | MP ---
cc: LINO KEY M.D. DATE OF SURGERY 06/22/2017 at 01:30 PREOPERATIVE DIAGNOSES 1. 30 weeks gestation. 2. Premature rupture of membranes. 3. Breech presentation. 4. Umbilical cord prolapse. POSTOPERATIVE DIAGNOSES 1. 30 weeks gestation. 2. Premature rupture of membranes. 3. Breech presentation. 4. Umbilical cord prolapse. PROCEDURE Primary low transverse section without extensions. ESTIMATED BLOOD LOSS 600 cc. ANESTHETIC General endotracheal. MEDICATIONS Ancef 2 grams was given intraoperatively. COMPLICATIONS No complications were noted. COUNTS X-ray done postoperatively revealed no retained sponges or instruments. FINDINGS 1. Normal uterus, tubes and ovaries. 2. No amniotic fluid was noted. 3. male in a complete breech presentation, weighing 3 pounds, 7.7 ounces which is 1580 grams without Apgars of 3 and 8. 4. Placenta was noted to be mildly malodorous with a very tenuous umbilical cord, could not get any cord blood from the umbilical cord. Placenta was sent to pathology. DESCRIPTION OF PROCEDURE The patient called out from her room and stated that there was something coming out from between her legs while she was in the bathroom. The labor nurse was in the labor room with her at this time. A quick assessment revealed an umbilical cord prolapse and elevation was given to the baby's breech and was kept elevated until delivery of the infant. The patient was taken back to the operating room in an emergency fashion with arrival in the operating room at 00:27, with operating room start time at 00:36 and delivered of the baby at 00:37. DESCRIPTION OF PROCEDURE A Pfannenstiel incision was made to the skin, taken down to the fascia. The fascia was nicked in the midline and distended bilaterally and taken off the rectus muscles. The rectus muscles were divided in the midline. The anterior peritoneum was entered. The vesicouterine peritoneum was away from the field and a transverse hysterotomy incision was made bluntly, extended bilaterally. The infant's breech was delivered to the operative field. Lower extremities were both delivered and using counterclockwise and clockwise motion the upper extremities were delivered. The head was then flexed and then delivered to the field. The infant was handed directly to the neonatology team as is the appeared very flaccid. Resuscitation started immediately. The placenta was delivered intact spontaneously and sent to histopathology. The hysterotomy incision was repaired using a running locking #1 chromic suture with good hemostasis. Gutters were rendered free of all blood and clot material. The fascia was closed with #1 PDS and a subcuticular suture of 3-0 Monocryl with a dressing placed on the patient. She tolerated the procedure well. She was taken back to the recovery room in good condition. MD KEVIN Donahue/YANET /1:21 AM /6:06 AM
--- NOTE | 2017-06-22 08:26 | HHI.OB ---
Subjective Post Operative Day: 0 Remarks Postoperative day # 0 after emergency C/S secondary to cord prolapse, breech delivery, pre-eclampsia with AROM. AFVSS overnight. Incision not draining. Pain controlled with RECYCLING SPECIALIST pump. Decreased lochia. Denies dysuria. No breast tenderness. She is feeding the baby via breast milk, baby in NICU. Appetite good. No nausea or vomiting. No BM since delivery. Ambulating well. Denies calf pain or shortness of breath. Otherwise, she is doing well this morning and has no other concerns. Objective Vitals/I&O Vital Signs Date Time Temp Pulse Resp B/P (MAP) Pulse Ox O2 Delivery O2 Flow Rate FiO2 06/22/17 08:00 97.7 97 06/22/17 08:00 57 104/64 (77) 06/22/17 06:00 16 06/22/17 05:00 97.7 60 18 98/64 (75) 98 06/22/17 02:52 97.1 06/22/17 02:45 55 20 111/70 (84) 06/22/17 02:45 95 06/22/17 02:33 22 06/22/17 02:30 58 18 110/79 (89) 06/22/17 02:30 95 06/22/17 02:30 96.5 06/22/17 02:04 22 98 06/22/17 02:04 60 112/68 (83) 06/22/17 02:04 22 98 06/22/17 02:00 71 118/75 (89) 06/22/17 02:00 22 98 06/22/17 01:39 97.6 98 06/22/17 01:39 20 06/22/17 01:38 118/74 (89) 06/22/17 01:38 79 06/21/17 20:00 18 06/21/17 19:18 97.7 06/21/17 19:18 81 115/61 (79) 06/21/17 15:59 79 94/51 (65) 06/21/17 15:58 98.3 18 06/21/17 12:16 95 06/21/17 12:00 98.1 95 18 106/43 (64) 06/21/17 10:50 89 06/21/17 10:45 89 06/21/17 10:40 96 06/21/17 10:35 97 06/21/17 10:30 91 06/21/17 10:25 88 06/21/17 10:20 89 06/21/17 10:15 88 06/21/17 10:10 87 06/21/17 10:05 86 06/21/17 10:00 84 06/21/17 09:55 89 06/21/17 09:50 89 06/21/17 09:45 88 06/21/17 09:40 87 06/21/17 09:35 94 06/21/17 09:30 94 06/21/17 09:25 87 06/21/17 09:15 86 06/21/17 09:10 83 06/21/17 09:05 86 06/21/17 09:00 88 06/21/17 08:55 83 06/21/17 08:50 87 06/21/17 08:45 85 06/21/17 08:40 91 06/21/17 08:35 94 06/21/17 08:30 91 06/21/17 08:25 86 06/21/17 08:20 84 Result Diagram: 06/21/17 1025 06/20/17 0415 Objective Remarks GENERAL: Well-nourished, well-developed patient. CARDIOVASCULAR: Regular rate and rhythm without murmurs, gallops, or rubs. RESPIRATORY: Breath sounds equal bilaterally. No accessory muscle use. ABDOMEN/GI: Abdomen soft, non-tender, bowel sounds present. Incision: Clean, dry and intact. Pressure dressing in place. Fundus: Firm, non-tender at umbilicus. GENITOURINARY: Light to moderate bleeding. EXTREMITIES: No cyanosis or edema, non-tender, without signs of DVT. Medications and IVs Current Medications Medications (Trade) Dose Ordered Sig/Becka Route Start Time Stop Time Status Last Admin Lactated Ringer's 1,000 ml @ 125 mls/hr Q8H IV 06/20/17 03:22 06/21/17 12:16 (NS Flush) 2 ml UNSCH PRN IV FLUSH 06/20/17 03:30 (NS Flush) 2 ml BID IV FLUSH 06/20/17 09:00 06/21/17 21:40 (Tylenol) 650 mg Q4H PRN PO 06/20/17 03:30 06/21/17 05:00 (Zofran Inj) 4 mg Q6H PRN IV PUSH 06/20/17 03:30 (Zofran Odt) 4 mg Q6H PRN PO 06/20/17 03:30 (Colace) 100 mg Q12H PRN PO 06/20/17 03:30 (Stuartnatal Plus 3 ) 1 tab DAILY PO 06/20/17 09:00 06/21/17 10:00 (Ambien) 5 mg HS PRN PO 06/20/17 03:30 Ampicillin Sodium 2000 mg/Sodium Chloride 100 ml @ 400 mls/hr Q6HR NEB IV 06/20/17 04:00 06/21/17 21:40 (Ees) 400 mg Q6HR PO 06/20/17 06:00 06/22/17 00:21 (Percocet 5-325 Mg) 1 tab Q4H PRN PO 06/20/17 03:30 (Lovenox Inj) 40 mg Q24H SQ 06/20/17 21:00 06/21/17 21:39 Lactated Ringer's 1,000 ml @ 100 mls/hr Q10H IV 06/22/17 06:37 06/23/17 02:36 Oxytocin 500 ml @ 100 mls/hr UNSCH X1 PRN IV 06/22/17 11:45 06/23/17 11:44 (NS Flush) 2 ml BID IV FLUSH 06/22/17 09:00 (NS Flush) 2 ml UNSCH PRN IV FLUSH 06/22/17 01:45 (Mylicon Chew) 80 mg QID PRN PO 06/22/17 01:45 (Motrin) 600 mg Q6H PRN PO 06/22/17 01:45 (Toradol Inj) 60 mg UNSCH X1 PRN IM 06/22/17 01:45 06/23/17 01:44 (Percocet 5-325 Mg) 1 tab Q4H PRN PO 06/22/17 01:45 (Percocet 5-325 Mg) 2 tab Q4H PRN PO 06/22/17 01:45 (Su-Colace) 2 tab Q12H PRN PO 06/22/17 01:45 (M-M-R Ii Inj) 0.5 ml ONCE ONCE SQ 06/23/17 16:00 06/23/17 16:01 (Boostrix Inj) 0.5 ml ONCE ONCE IM 06/23/17 16:00 06/23/17 16:01 (Zofran Inj) 4 mg Q6H PRN IV PUSH 06/22/17 01:45 (Narcan Inj) 0.4 mg UNSCH PRN IV PUSH 06/22/17 01:45 (Benadryl) 25 mg Q6H PRN PO 06/22/17 01:45 RECYCLING SPECIALIST Dosage Infused (Pha) 1 Q8HR OTHER 06/22/17 06:00 06/22/17 06:00 (Dilaudid RECYCLING SPECIALIST Inj) 6 mg UNSCH IV 06/22/17 01:45 06/22/17 02:33 Cefazolin Sodium/ Dextrose 50 ml @ 100 mls/hr Q8H IV 06/22/17 14:00 06/22/17 14:29 Assessment/Plan Assessment and Plan 32 y/o female who is POD # 0 s/p emergency CXN for breech, prolapsed cord. Originally admitted for PPROM. VS wnl. -Continue routine care. -RECYCLING SPECIALIST pump for now, will transition to Percocet and Motrin PRN pain. -Antibiotics to continue for 24 hrs post-operatively. -Encouraged OOB. Advised pelvic rest for 6 wks. Will need a f/u appt. in 1 wk for incision check. -Will discuss contraception tomorrow. -Anticipate discharge 1-[address] MD R2 Jun 22, 2017 08:26
[2017-06-22] MEDS: SODIUM CHLORIDE 0.9% FLUSH 10 ML FLUSH IV FLUSH SCH ×2 (09:00→21:00)
[2017-06-22 11:02] LABS: HEPATITIS A AB IGM NEGATIVE (NEGATIVE); HEPATITIS B CORE AB IGM NEGATIVE (NEGATIVE); HEPATITIS B SURFACE ANTIGEN NEGATIVE (NEGATIVE); HEPATITIS C AB IgG NEGATIVE (NEGATIVE)
[2017-06-22] MEDS ORDERED: OXYTOCIN 30 UNITS-500ML PREMIX 500 ML IV PRN (11:45)
[2017-06-22] MEDS ORDERED: ONDANSETRON HCL 4 MG/2 ML VIAL IV ONE (12:00)
[2017-06-22] MEDS ORDERED: DEXAMETHASONE SOD PHOS 4 MG/ML VIAL IV ONE (12:00)
[2017-06-22] MEDS ORDERED: OXYTOCIN 10 UNIT/ML AMP IV ONE (12:00)
[2017-06-22] MEDS ORDERED: SUCCINYLCHOLINE CHLORIDE 100 MG/5 ML SYRINGE IV PUSH ONE (12:00)
[2017-06-22] MEDS ORDERED: LIDOCAINE HCL 1% PF 5 ML SYRINGE OTHER ONE (12:00)
[2017-06-22] MEDS ORDERED: ceFAZolin INJ 1,000 MG VIAL IV ONE (12:00)
[2017-06-22] MEDS ORDERED: ePHEDrine/NS 25 MG/5 ML SYRINGE IV ONE (12:00)
[2017-06-22] MEDS ORDERED: PROPOFOL 200 MG/20 ML AMP IV ONE (12:00)
[2017-06-22] MEDS ORDERED: GLYCOPYRROLATE 1 MG/5 ML SYRINGE IV PUSH ONE (12:00)
[2017-06-22] MEDS ORDERED: ceFAZolin 2 GM PREMIX 50 ML IV SCH (14:00)
[2017-06-22] MEDS: oxyCODONE/ACETAMINOPHEN 5 MG/325 MG TAB PO PRN ×3 (14:51→23:39)
[2017-06-22] MEDS ORDERED: MORPHINE SULFATE 2 MG/ML INJ IV PUSH ONE (15:45)
[2017-06-22] MEDS ORDERED: MORPHINE SULFATE 2 MG/ML INJ IV PUSH PRN (18:45)
[2017-06-22] MEDS: DOCUSATE SODIUM 50 MG/SENNA 8.6 MG TAB PO PRN (19:35)
[2017-06-22] MEDS: MULTIVIT/MIN/PREN/FOL AC/IRON PRENATAL TAB PO SCH (22:30)
[2017-06-22] MEDS: ENOXAPARIN SODIUM 40 MG/0.4 ML SYRINGE SQ SCH (22:31)
[2017-06-23] VITALS: BP 93/56; PULSE 58; RESP 16; TEMP 97.5; O2SAT 96
[2017-06-23] MEDS: LACTATED RINGER'S 1000 ML INJ 1,000 ML IV SCH (03:22)
[2017-06-23] MEDS: oxyCODONE/ACETAMINOPHEN 5 MG/325 MG TAB PO PRN ×4 (03:54→20:20)
[2017-06-23 05:53] LABS: AUTOMATED NEUTROPHIL # 5.6 TH/MM3 (1.8-7.7); BASOPHIL % 0.1 % (0.0-2.0); EOSINOPHIL % 0.2 % (0.0-4.0); HEMATOCRIT 30.1 % (35.0-46.0); HEMOGLOBIN 10.5 GM/DL (11.6-15.3); LYMPH % 22.8 % (9.0-44.0); LYMPHOCYTE # 1.9 TH/MM3 (1.0-4.8); MEAN CELL VOLUME 92.4 FL (80.0-100.0); MEAN CORPUSCULAR HEMOGLOBIN 32.2 PG (27.0-34.0); MEAN CORPUSCULAR HGB CONC 34.8 % (32.0-36.0); MEAN PLATELET VOLUME 8.5 FL (7.0-11.0); MONOCYTE # 0.7 TH/MM3 (0-0.9); NEUT % 68.9 % (16.0-70.0); PLATELET COUNT 157 TH/MM3 (150-450); RED BLOOD COUNT 3.26 MIL/MM3 (4.00-5.30); WHITE BLOOD COUNT 8.2 TH/MM3 (4.0-11.0)
--- NOTE | 2017-06-23 07:29 | HHI.OB ---
Subjective Post Operative Day: 2 Remarks Postoperative day # 1 after emergency C/S secondary to cord prolapse, breech delivery, pre-eclampsia with AROM. AFVSS overnight. Incision not draining. Pain moderately controlled with Percocet, would like ibuprofen. Minimal lochia. Denies dysuria. No breast tenderness. She is feeding the baby via breast milk , baby in NICU. Appetite good. No nausea or vomiting. No BM since delivery, + flatus. Ambulating well. Denies calf pain or shortness of breath. Otherwise, she is doing well this morning and has no other concerns. Objective Vitals/I&O Vital Signs Date Time Temp Pulse Resp B/P (MAP) Pulse Ox O2 Delivery O2 Flow Rate FiO2 06/23/17 00:00 97.5 58 16 93/56 (68) 96 06/22/17 20:00 98.0 16 97 06/22/17 20:00 58 102/65 (77) 06/22/17 13:47 97.7 54 20 102/62 (75) 06/22/17 08:00 16 06/22/17 08:00 97.7 97 06/22/17 08:00 57 104/64 (77) Result Diagram: 06/23/17 0516 06/20/17 0415 Objective Remarks GENERAL: Well-nourished, well-developed female. CARDIOVASCULAR: Regular rate and rhythm without murmurs, gallops, or rubs. RESPIRATORY: Breath sounds equal bilaterally. No accessory muscle use. ABDOMEN/GI: Abdomen soft, non-tender, bowel sounds present. Incision: Clean, dry and intact. Pressure dressing still in place. Fundus: Firm, appropriately tender at umbilicus. GENITOURINARY: Light to moderate bleeding. EXTREMITIES: No cyanosis or edema, non-tender, without signs of DVT. Medications and IVs Current Medications Medications (Trade) Dose Ordered Sig/Becka Route Start Time Stop Time Status Last Admin Lactated Ringer's 1,000 ml @ 125 mls/hr Q8H IV 06/20/17 03:22 06/21/17 12:16 (Tylenol) 650 mg Q4H PRN PO 06/20/17 03:30 06/21/17 05:00 (Zofran Odt) 4 mg Q6H PRN PO 06/20/17 03:30 (Ambien) 5 mg HS PRN PO 06/20/17 03:30 (Lovenox Inj) 40 mg Q24H SQ 06/20/17 21:00 06/22/17 22:31 Oxytocin 500 ml @ 100 mls/hr UNSCH X1 PRN IV 06/22/17 11:45 06/23/17 11:44 (NS Flush) 2 ml BID IV FLUSH 06/22/17 09:00 (NS Flush) 2 ml UNSCH PRN IV FLUSH 06/22/17 01:45 (Mylicon Chew) 80 mg QID PRN PO 06/22/17 01:45 (Motrin) 600 mg Q6H PRN PO 06/22/17 01:45 (Su-Colace) 2 tab Q12H PRN PO 06/22/17 01:45 06/22/17 19:35 (M-M-R Ii Inj) 0.5 ml ONCE ONCE SQ 06/23/17 16:00 06/23/17 16:01 (Boostrix Inj) 0.5 ml ONCE ONCE IM 06/23/17 16:00 06/23/17 16:01 (Zofran Inj) 4 mg Q6H PRN IV PUSH 06/22/17 01:45 (Percocet 5-325 Mg) 1 tab Q4H PRN PO 06/22/17 09:15 (Percocet 5-325 Mg) 2 tab Q4H PRN PO 06/22/17 09:15 06/23/17 03:54 (Morphine Inj) 2 mg Q3H PRN IV PUSH 06/22/17 18:45 (Stuartnatal Plus 3 ) 1 tab HS PO 06/22/17 21:00 06/22/17 22:30 Assessment/Plan Assessment and Plan 32 y/o female who is POD # 1 s/p emergency CXN for breech, prolapsed cord. Originally admitted for PPROM. VS wnl. -Continue routine care. -PERSONAL ASSISTANT pump transitioned to Percocet 06/22, will add ibuprofen today. -Antibiotics to continue for 24 hrs post-operatively (Ancef). -Encouraged OOB. Advised pelvic rest for 6 wks. Will need a f/u appt. in 1 wk for incision check. -Will discuss contraception tomorrow. -Anticipate discharge 1-[address] MD R2 Jun 23, 2017 07:29
[2017-06-23 08:00] VITALS: BP_SYST 102; BP_SYST 118; BP_DIAS 62; BP_DIAS 74; PULSE 62; PULSE 86; RESP 18; TEMP 97.8
[2017-06-23] MEDS: IBUPROFEN 600 MG TAB PO PRN ×3 (08:38→20:19)
[2017-06-23] MEDS: DOCUSATE SODIUM 50 MG/SENNA 8.6 MG TAB PO PRN ×2 (08:38→20:20)
[2017-06-23] MEDS ORDERED: DIPHTH/TETANUS/ACEL PERTUSSIS (BOOSTER) 0.5 ML VIAL/PFS IM ONE (16:00)
[2017-06-23] MEDS ORDERED: MEASLES, MUMPS, RUBELLA VACCINE 0.5 ML VIAL SQ ONE (16:00)
[2017-06-23] MEDS: MULTIVIT/MIN/PREN/FOL AC/IRON PRENATAL TAB PO SCH (20:19)
[2017-06-23] MEDS: ENOXAPARIN SODIUM 40 MG/0.4 ML SYRINGE SQ SCH (20:19)
[2017-06-23] MEDS: SODIUM CHLORIDE 0.9% FLUSH 10 ML FLUSH IV FLUSH SCH (20:24)
[2017-06-24] MEDS: IBUPROFEN 600 MG TAB PO PRN ×4 (02:39→21:28)
[2017-06-24] MEDS: oxyCODONE/ACETAMINOPHEN 5 MG/325 MG TAB PO PRN ×4 (02:39→21:28)
--- NOTE | 2017-06-24 07:28 | HHI.OB ---
Subjective Post Operative Day: 2 Remarks Postoperative day # 2 after emergency C/S secondary to cord prolapse, breech delivery, pre-eclampsia with AROM. AFVSS overnight. Incision not draining. Pain controlled with Percocet and ibuprofen. Minimal lochia. Denies dysuria. No breast tenderness. She is feeding the baby via breast milk, baby in NICU. Appetite good. No nausea or vomiting. No BM since delivery, + flatus. Ambulating well. Denies calf pain or shortness of breath. Otherwise, she is doing well this morning and has no other concerns. Objective Vitals/I&O Vital Signs Date Time Temp Pulse Resp B/P (MAP) Pulse Ox O2 Delivery O2 Flow Rate FiO2 06/23/17 08:00 97.8 86 18 118/74 (89) 06/23/17 08:00 62 102/62 (75) Result Diagram: 06/23/1716 06/20/17 0415 Objective Remarks GENERAL: Well-nourished, well-developed female. CARDIOVASCULAR: Regular rate and rhythm without murmurs, gallops, or rubs. RESPIRATORY: Breath sounds equal bilaterally. No accessory muscle use. ABDOMEN/GI: Abdomen soft, non-tender, bowel sounds present. Incision: Clean, dry and intact. Silver nitrate dressing still in place. Fundus: Firm, non-tender at umbilicus. GENITOURINARY: Light to moderate bleeding. EXTREMITIES: No cyanosis or edema, non-tender, without signs of DVT. Medications and IVs Current Medications Medications (Trade) Dose Ordered Sig/Becka Route Start Time Stop Time Status Last Admin (Ambien) 5 mg HS PRN PO 06/20/17 03:30 (Lovenox Inj) 40 mg Q24H SQ 06/20/17 21:00 06/23/17 20:19 (NS Flush) 2 ml BID IV FLUSH 06/22/17 09:00 (NS Flush) 2 ml UNSCH PRN IV FLUSH 06/22/17 01:45 (Mylicon Chew) 80 mg QID PRN PO 06/22/17 01:45 (Motrin) 600 mg Q6H PRN PO 06/22/17 01:45 06/24/17 02:39 (Su-Colace) 2 tab Q12H PRN PO 06/22/17 01:45 06/23/17 20:20 (Zofran Inj) 4 mg Q6H PRN IV PUSH 06/22/17 01:45 (Percocet 5-325 Mg) 1 tab Q4H PRN PO 06/22/17 09:15 (Percocet 5-325 Mg) 2 tab Q4H PRN PO 06/22/17 09:15 06/24/17 02:39 (Stuartnatal Plus 3 ) 1 tab HS PO 06/22/17 21:00 06/23/17 20:19 Assessment/Plan Assessment and Plan 32 y/o female who is POD # 2 s/p emergency CXN for breech, prolapsed cord. Originally admitted for PPROM. VS wnl. -Continue routine care. -Percocet and ibuprofen PRN pain. -Ancef completed 24hr . -Encouraged OOB. Advised pelvic rest for 6 wks. Will need a f/u appt. in 1 wk for incision check. -Will discuss contraception tomorrow. -Anticipate discharge tomorrow Sharmin Marshall Dr., MD R2 Jun 24, 2017 07:28
[2017-06-24 08:00] VITALS: BP 111/76; PULSE 84; RESP 20; TEMP 97.9; O2SAT 97
[2017-06-24] MEDS: DOCUSATE SODIUM 50 MG/SENNA 8.6 MG TAB PO PRN ×2 (09:08→21:27)
[2017-06-24 19:42] VITALS: BP 100/62; PULSE 65; RESP 16; TEMP 98.3; O2SAT 98
[2017-06-24] MEDS: MULTIVIT/MIN/PREN/FOL AC/IRON PRENATAL TAB PO SCH (21:27)
[2017-06-24] MEDS: ENOXAPARIN SODIUM 40 MG/0.4 ML SYRINGE SQ SCH (22:54)
[2017-06-25] MEDS: oxyCODONE/ACETAMINOPHEN 5 MG/325 MG TAB PO PRN (04:01)
[2017-06-25] MEDS: IBUPROFEN 600 MG TAB PO PRN (04:01)
[2017-06-25] MEDS ORDERED: ENOX40P SQ (07:20)
[2017-06-25] MEDS ORDERED: IBUP-232 PO (07:20)
[2017-06-25] MEDS ORDERED: OXYC1TAB63 PO (07:21)
--- NOTE | 2017-06-25 07:22 | HHI.DCPOC ---
Discharge Care Plan Diagnosis: (1) Breech presentation (2) 30 weeks gestation of (3) Premature rupture of membranes (PROM), onset of labor after 24 hours, antepartum, (4) Prolapse of cord complicating labor and delivery, antepartum Report Symptoms to Your Doctor -Temperature above 100.5 degrees -Redness, of incision or excessive or foul smelling drainage -Unusual pain or calf pain -Increased vaginal bleeding -Painful or difficulty urinating -Feelings of extreme sadness or anxiety after 2 weeks Goals to Promote Your Health * To prevent worsening of your condition and complications * To maintain your health at the optimal level Directions to Meet Your Goals Take your medications as prescribed Follow your dietary instruction Follow activity as directed Ensure plenty of rest for recovery Drink fluids for hydration Keep your appointments as scheduled Take your immunizations and boosters as scheduled If your symptoms worsen call your PCP, if no PCP go to Urgent Care Center or Emergency Room Smoking is Dangerous to Your Health. Avoid second hand smoke Call the 24-hour crisis hotline for domestic abuse at Sharmin Mary MD R2 Jun 25, 2017 07:22
--- NOTE | 2017-06-25 07:47 | HHI.OB ---
Subjective Post Operative Day: 3 Remarks Postoperative day # 3 after emergency C/S secondary to cord prolapse, breech delivery, pre-eclampsia with AROM. AFVSS overnight. Incision not draining. Pain controlled with Percocet and ibuprofen. Minimal lochia. Denies dysuria. No breast tenderness. She is feeding the baby via breast milk, baby in NICU. Appetite good. No nausea or vomiting. No BM since delivery, has has bowel movement this hospital stay. Ambulating well. Denies calf pain or shortness of breath. Otherwise, she is doing well this morning and has no other concerns. Objective Vitals/I&O Vital Signs Date Time Temp Pulse Resp B/P (MAP) Pulse Ox O2 Delivery O2 Flow Rate FiO2 06/24/17 19:42 100/62 (75) 06/24/17 19:42 98.3 65 16 98 06/24/17 08:00 97.9 84 20 111/76 (88) 97 Result Diagram: 06/23/17 0516 Objective Remarks GENERAL: Well-nourished, well-developed female. CARDIOVASCULAR: Regular rate and rhythm without murmurs, gallops, or rubs. RESPIRATORY: Breath sounds equal bilaterally. No accessory muscle use. ABDOMEN/GI: Abdomen soft, non-tender, bowel sounds present. Incision: Clean, dry and intact. Silver nitrate dressing still in place. Fundus: Firm, non-tender at umbilicus. GENITOURINARY: Light to moderate bleeding. EXTREMITIES: No cyanosis or edema, non-tender, without signs of DVT. Medications and IVs Current Medications Medications (Trade) Dose Ordered Sig/Becka Route Start Time Stop Time Status Last Admin (Ambien) 5 mg HS PRN PO 06/20/17 03:30 (Lovenox Inj) 40 mg Q24H SQ 06/20/17 21:00 06/24/17 22:54 (NS Flush) 2 ml BID IV FLUSH 06/22/17 09:00 (NS Flush) 2 ml UNSCH PRN IV FLUSH 06/22/17 01:45 (Mylicon Chew) 80 mg QID PRN PO 06/22/17 01:45 (Motrin) 600 mg Q6H PRN PO 06/22/17 01:45 06/25/17 04:01 (Su-Colace) 2 tab Q12H PRN PO 06/22/17 01:45 06/24/17 21:27 (Zofran Inj) 4 mg Q6H PRN IV PUSH 06/22/17 01:45 (Percocet 5-325 Mg) 1 tab Q4H PRN PO 06/22/17 09:15 06/25/17 04:01 (Percocet 5-325 Mg) 2 tab Q4H PRN PO 06/22/17 09:15 06/24/17 15:08 (Stuartnatal Plus 3 ) 1 tab HS PO 06/22/17 21:00 06/24/17 21:27 Assessment/Plan Assessment and Plan 32 y/o female who is POD # 3 s/p emergency CXN for breech, prolapsed cord. Originally admitted for PPROM. VS wnl. -Continue routine care. -Percocet and ibuprofen PRN pain, scripts written -Ancef completed 24hr . -Lovenox shots 40mg sq daily to continue until discontinued by patient's MD, script given for 60 day supply -Encouraged OOB. Advised pelvic rest for 6 wks. Will need a f/u appt. in 1 wk for incision check. -Will discuss contraception with her OB. -Discharge today CHAVEZ Hernandez Discharge Planning Discharge today Sharmin Mary MD R2 Jun 25, 2017 07:47
[2017-06-25 07:50] VITALS: BP 114/78; PULSE 63; RESP 12; TEMP 98
[2017-06-25] MEDS: SODIUM CHLORIDE 0.9% FLUSH 10 ML FLUSH IV FLUSH SCH (08:10)
[2017-06-25 12:36] VITALS: PULSE 91
[2017-06-25 12:37] VITALS: O2SAT 96
== END 2017-06-25 12:45 | disposition home or self-care (01) | DRG 766 ==
LOC: HOBED 01:49 → H2EA 02:49 → H1EA 06-22 04:37
PROVIDERS: ADMIT Obstetrics & Gynecology Maternal & Fetal Medicine; ATTEND Obstetrics & Gynecology Maternal & Fetal Medicine
PROC: 10D00Z1 Extraction of Products of Conception, Low, Open Approach (ICD-10-PCS; principal; 2017-06-22)
DX: O42.113 Preterm premature rupture of membranes, onset of labor more than 24 hours following rupture, third trimester (principal); O32.1XX0 Maternal care for breech presentation, not applicable or unspecified; O69.0XX0 Labor and delivery complicated by prolapse of cord, not applicable or unspecified; O14.94 Unspecified pre-eclampsia, complicating childbirth; Z37.0 Single live birth; Z3A.30 30 weeks gestation of pregnancy; Z86.718 Personal history of other venous thrombosis and embolism; Z79.01 Long term (current) use of anticoagulants
CPT/HCPCS: 59025; 74000; 76815; 80053; 80074; 80307; 81001; 84112; 85025; 85610; 85730; 86592; 86703; 86762; 86850; 86900; 86901; 87081; 87150; 87491; 87591; 88307; J0290; J0330; J0690; J0702; J1100; J1170; J1650; J2405; J2590; J3010; J3475; J7120